=== PATIENT | female | born 1985 | race American Indian/Alaskan Native ===

== ENCOUNTER 2016-12-03 20:52 | Inpatient (IN) | payer OTHER ==
--- NOTE | 2016-12-03 21:21 | Emergency Department Report ---
ED General Adult HPI - General Chief complaint: Chest Pain Stated complaint: CHEST PAIN Time Seen by Provider: 12/03/16 21:19 Source: patient, RN notes reviewed Mode of arrival: Ambulatory Limitations: No Limitations - History of Present Illness Initial comments: This is a 31-year-old female. She is previously unknown to me. She has a past medical history of hypertension. She does not currently have a primary care doctor. The patient is brought to the hospital by EMS. The patient complains of chest pain. Chest pain is central. It is associated with shortness of breath, radiates down the left upper extremity. There is no nausea, vomiting. There is no diaphoresis. There is no leg pain. There is no leg swelling. No recent trips greater than 4 hours. No recent hospital admissions. Patient does not take control tablets. In the ER, the patient was found to be severely short of breath, with markedly work of breathing. Her EKG was abnormal with a left axis deviation, left anterior fascicular block, had an elevated d-dimer, and had a CT scan of the chest which was negative for pulmonary embolus. The patient was given a trial of ambulation, she became markedly short of breath. Given her abnormal EKG, presence of hypertension, clinical symptoms, the patient will be admitted to the hospital to rule out cardiomyopathy, and acute coronary syndrome. The case was discussed with the Hospital physician, Dr. Pugh, who accepted the patient to her service. -: Gradual Location: chest, left, upper extremity Consistency: intermittent Improves with: rest Worsens with: movement Associated Symptoms: chest pain, shortness of breath, weakness - Related Data Home Medications Medication Instructions Recorded Confirmed Last Taken Hydrochlorothiazide 25 mg PO DAILY 09/06/13 12/03/16 02/05/14 08:00 Previous Rx's Medication Instructions Recorded Last Taken Type Cyclobenzaprine [Flexeril 10mg] 10 mg PO Q8H PRN #21 tablet 02/05/14 Unknown Rx Mark/Polymyx B/Dexameth Opth(Nf 2 drops OS QID #5 ml 02/05/14 Unknown Rx [Maxitrol] Acetamin/Codeine 120-12Mg/5 ml 5 ml PO TID PRN #10 dose 08/24/14 Unknown Rx [Tylenol/Codeine] Penicillin Vk [Veetids TAB] 500 mg PO BID #20 tablet 08/24/14 Unknown Rx Prednisone [Prednisone 5 mg (6-Day 5 mg PO .TAPER #1 tab.ds.pk 08/24/14 Unknown Rx Pack, 21 Tabs)] traMADol [Ultram 50 MG tab] 50 mg PO Q6HR PRN #21 tablet 03/27/15 Unknown Rx Acetaminophen/Codeine [Tylenol 1 tab PO TID PRN #15 tab 04/25/15 Unknown Rx /Codeine # 3 tab] Ibuprofen [Motrin 800 MG tab] 800 mg PO Q8H PRN #30 tablet 04/25/15 Unknown Rx Allergies Allergy/AdvReac Type Severity Reaction Status Date / Time pineapple Allergy Itching Verified 12/03/16 21:19 ED Review of Systems ROS: Stated complaint: CHEST PAIN Other details as noted in HPI Constitutional: denies: malaise Eyes: denies: vision change ENT: denies: epistaxis, congestion Respiratory: shortness of breath Cardiovascular: chest pain, dyspnea on exertion Gastrointestinal: nausea Genitourinary: denies: dysuria Musculoskeletal: back pain Skin: denies: lesions Neurological: weakness, paresthesias Psychiatric: anxiety ED Past Medical Hx - Past Medical History Hx Hypertension: Yes Additional medical history: Obesity. Chronic back pain - Surgical History Past Surgical History?: No - Social History Smoking Status: Current Every Day Smoker Substance Use Type: None - Medications Home Medications: Home Medications Medication Instructions Recorded Confirmed Last Taken Type Hydrochlorothiazide 25 mg PO DAILY 09/06/13 12/03/16 02/05/14 08:00 History Cyclobenzaprine [Flexeril 10mg] 10 mg PO Q8H PRN #21 tablet 02/05/14 12/03/16 Unknown Rx Mark/Polymyx B/Dexameth Opth(Nf 2 drops OS QID #5 ml 02/05/14 12/03/16 Unknown Rx [Maxitrol] Acetamin/Codeine 120-12Mg/5 ml 5 ml PO TID PRN #10 dose 08/24/14 12/03/16 Unknown Rx [Tylenol/Codeine] Penicillin Vk [Veetids TAB] 500 mg PO BID #20 tablet 08/24/14 12/03/16 Unknown Rx Prednisone [Prednisone 5 mg (6-Day 5 mg PO .TAPER #1 tab.ds.pk 08/24/14 Unknown Rx Pack, 21 Tabs)] traMADol [Ultram 50 MG tab] 50 mg PO Q6HR PRN #21 tablet 03/27/15 12/03/16 Unknown Rx Acetaminophen/Codeine [Tylenol 1 tab PO TID PRN #15 tab 04/25/15 12/03/16 Unknown Rx /Codeine # 3 tab] Ibuprofen [Motrin 800 MG tab] 800 mg PO Q8H PRN #30 tablet 04/25/15 12/03/16 Unknown Rx ED Physical Exam - General Limitations: No Limitations General appearance: alert, in distress, obese - Head Head exam: Present: atraumatic, normocephalic - Eye Eye exam: Present: normal appearance, EOMI. Absent: nystagmus - ENT ENT exam: Present: normal exam, normal orophraynx, mucous membranes moist, normal external ear exam - Neck Neck exam: Present: normal inspection, full ROM. Absent: tenderness, meningismus - Respiratory Respiratory exam: Present: normal lung sounds bilaterally. Absent: respiratory distress, wheezes, rales, rhonchi, stridor, chest wall tenderness, accessory muscle use, decreased breath sounds, prolonged expiratory - Cardiovascular Cardiovascular Exam: Present: regular rate, normal rhythm, normal heart sounds. Absent: bradycardia, tachycardia, irregular rhythm, systolic murmur, diastolic murmur, rubs, gallop - GI/Abdominal GI/Abdominal exam: Present: soft, normal bowel sounds. Absent: distended, tenderness, guarding, rebound, rigid, pulsatile mass - Extremities Exam Extremities exam: Present: normal inspection, full ROM, normal capillary refill. Absent: tenderness, pedal edema, joint swelling, calf tenderness - Back Exam Back exam: Present: normal inspection, full ROM. Absent: tenderness, CVA tenderness (R), CVA tenderness (L), muscle spasm, paraspinal tenderness, vertebral tenderness - Neurological Exam Neurological exam: Present: alert, oriented X3, normal gait, other (Extraocular movements intact. Tongue midline. No facial droop. Facial sensation intact to light touch in the V1, V2, V3 distribution bilaterally. 5 and 5 strength in 4 extremities.. Sensation is intact to light touch in 4 extremities.). Absent : motor sensory deficit - Psychiatric Psychiatric exam: Present: anxious - Skin Skin exam: Present: warm, dry, intact, normal color. Absent: rash ED Course Vital Signs 12/03/16 12/03/16 12/04/16 21:12 22:29 00:21 Temperature 98 F Pulse Rate 74 74 71 Respiratory 16 16 Rate Blood Pressure 155/96 Blood Pressure 139/89 139/81 [Left] O2 Sat by Pulse 95 95 100 Oximetry 12/04/16 01:02 Temperature Pulse Rate 84 Respiratory 16 Rate Blood Pressure Blood Pressure 147/89 [Left] O2 Sat by Pulse 95 Oximetry - Reevaluation(s) Reevaluation #1: 12/04/16 01:06 differential diagnosis: Acute coronary syndrome, pneumonia, pulmonary embolus, anxiety, cardiomyopathy Assessment and plan: 31-year-old female with concerning chest pain, abnormal EKG , appears quite distressed, with difficult work of breathing, to be admitted for further evaluation. ED Medical Decision Making - Lab Data Result diagrams: 12/03/16 21:19 12/03/16 21:19 Vital Signs 12/03/16 12/03/16 12/04/16 21:12 22:29 00:21 Temperature 98 F Pulse Rate 74 74 71 Respiratory 16 16 Rate Blood Pressure 155/96 Blood Pressure 139/89 139/81 [Left] O2 Sat by Pulse 95 95 100 Oximetry 12/04/16 01:02 Temperature Pulse Rate 84 Respiratory 16 Rate Blood Pressure Blood Pressure 147/89 [Left] O2 Sat by Pulse 95 Oximetry Lab Results 12/03/16 12/03/16 12/03/16 Range/Units 21:19 21:19 21:28 WBC 12.6 H (4.5-11.0) K/mm3 RBC 3.49 L (3.65-5.03) M/mm3 Hgb 10.7 (10.1-14.3) gm/dl Hct 31.5 (30.3-42.9) % MCV 90 (79-97) fl MCH 31 (28-32) pg MCHC 34 (30-34) % RDW 14.3 (13.2-15.2) % Plt Count 273 (140-440) K/mm3 Lymph % (Auto) 28.8 (13.4-35.0) % [place] % (Auto) 6.7 (0.0-7.3) % Eos % (Auto) 0.6 (0.0-4.3) % Baso % (Auto) 0.2 (0.0-1.8) % Lymph # 3.6 (1.2-5.4) K/mm3 [place] # 0.8 (0.0-0.8) K/mm3 Eos # 0.1 (0.0-0.4) K/mm3 Baso # 0.0 (0.0-0.1) K/mm3 Seg Neutrophils % 63.7 (40.0-70.0) % Seg Neutrophils # 8.0 H (1.8-7.7) K/mm3 PT 15.6 H (12.2-14.9) Sec. INR 1.25 H (0.87-1.13) D-Dimer (0-234) ng/mlDDU Sodium 140 (137-145) mmol/L Potassium 3.7 (3.6-5.0) mmol/L Chloride 101.8 (98-107) mmol/L Carbon Dioxide 25 (22-30) mmol/L Anion Gap 17 mmol/L BUN 7 (7-17) mg/dL Creatinine 0.8 (0.7-1.2) mg/dL Estimated GFR > 60 ml/min BUN/Creatinine Ratio 8.75 % Glucose 93 (65-100) mg/dL Calcium 8.7 (8.4-10.2) mg/dL Troponin T < 0.010 (0.00-0.029) ng/mL HCG, Quant (0-4) mIU/mL 12/03/16 12/03/16 12/04/16 Range/Units 21:28 21:28 00:13 WBC (4.5-11.0) K/mm3 RBC (3.65-5.03) M/mm3 Hgb (10.1-14.3) gm/dl Hct (30.3-42.9) % MCV (79-97) fl MCH (28-32) pg MCHC (30-34) % RDW (13.2-15.2) % Plt Count (140-440) K/mm3 Lymph % (Auto) (13.4-35.0) % [place] % (Auto) (0.0-7.3) % Eos % (Auto) (0.0-4.3) % Baso % (Auto) (0.0-1.8) % Lymph # (1.2-5.4) K/mm3 [place] # (0.0-0.8) K/mm3 Eos # (0.0-0.4) K/mm3 Baso # (0.0-0.1) K/mm3 Seg Neutrophils % (40.0-70.0) % Seg Neutrophils # (1.8-7.7) K/mm3 PT (12.2-14.9) Sec. INR (0.87-1.13) D-Dimer 251.11 H (0-234) ng/mlDDU Sodium (137-145) mmol/L Potassium (3.6-5.0) mmol/L Chloride (98-107) mmol/L Carbon Dioxide (22-30) mmol/L Anion Gap mmol/L BUN (7-17) mg/dL Creatinine (0.7-1.2) mg/dL Estimated GFR ml/min BUN/Creatinine Ratio % Glucose (65-100) mg/dL Calcium (8.4-10.2) mg/dL Troponin T < 0.010 (0.00-0.029) ng/mL HCG, Quant < 2 (0-4) mIU/mL - EKG Data 12/04/16 01:07 EKG #1 demonstrates normal sinus, 72 bpm, left ventricular hypertrophy, left axis deviation, left anterior fascicular block, not morphologically consistent with STEMI, there appears to be no change when compared to prior EKG from 2012. Repeat EKG demonstrates normal sinus, 77 bpm, left anterior fascicular block, left ventricular hypertrophy, not consistent with STEMI, unchanged from prior. - Radiology Data Radiology results: report reviewed, image reviewed CT scan of the chest is negative for acute disease. X-ray the chest is negative for acute disease. Critical care attestation.: If time is entered above; I have spent that time in minutes in the direct care of this critically ill patient, excluding procedure time. ED Disposition Clinical Impression: Abnormal EKG, Dyspnea, Chest pain Disposition: OP ADMITTED IP TO THIS HOSP Is pt being admited?: Yes Does the pt Need Aspirin: Yes Condition: Stable Instructions: Chest Pain (ED) Referrals: PRIMARY CARE, [Primary Care Provider] - 3-5 Days
[2016-12-03 21:36] LABS: Basophils % (Auto) 0.2 % (0.0-1.8); Eosinophils % (Auto) 0.6 % (0.0-4.3); Hematocrit 31.5 % (30.3-42.9); Hemoglobin 10.7 gm/dl (10.1-14.3); Mean Corpuscular HGB Conc 34 % (30-34); Mean Corpuscular Hemoglobin 31 pg (28-32); Mean Corpuscular Volume 90 fl (79-97); Platelet Count 273 K/mm3 (140-440); Red Blood Count 3.49 M/mm3 (3.65-5.03); Red Cell Distribution Width 14.3 % (13.2-15.2); White Blood Count 12.6 K/mm3 (4.5-11.0)
[2016-12-03 21:48] LABS: INR 1.25 (0.87-1.13)
[2016-12-03 22:11] LABS: BUN/Creatinine Ratio 8.75; Blood Urea Nitrogen 7 mg/dL (7-17); Calcium 8.7 mg/dL (8.4-10.2); Carbon Dioxide 25 mmol/L (22-30); Glucose 93 mg/dL (65-100)
[2016-12-03 22:12] LABS: Anion Gap 17 mmol/L; Chloride 101.8 mmol/L (98-107); Potassium 3.7 mmol/L (3.6-5.0); Sodium 140 mmol/L (137-145)
--- NOTE | 2016-12-03 22:38 | XRay Report ---
FINAL REPORT EXAM: XR CHEST ROUTINE 2V HISTORY: cp TECHNIQUE: Two view chest PA and lateral PRIORS: None. FINDINGS: Cardiac and mediastinal contours are unremarkable. No focal pulmonary infiltrate is identified. No pleural fluid collection seen. Pulmonary vasculature is unremarkable. IMPRESSION: Negative two-view chest
[2016-12-03] MEDS ORDERED: NACL 0.9% 1000 ML 1,000 ML IV ONE (22:53)
[2016-12-03] MEDS ORDERED: TORADOL IV ONE (22:53)
[2016-12-03] MEDS ORDERED: NACL ONE (23:14)
--- NOTE | 2016-12-04 00:04 | Cat Scan Report ---
FINAL REPORT PROCEDURE: CT ANGIO CHEST TECHNIQUE: Computerized tomographic angiography of the chest was performed during the IV injection of iodinated nonionic contrast including image processing. The image data was postprocessed using 2-dimensional multiplanar reformatted (MPR) and 3-dimensional (MIP and/or volume rendered) techniques. HISTORY: cp COMPARISON: Chest two views 12/03/2016 FINDINGS: Heart and pericardium: Normal. Thoracic aorta: Normal. Pulmonary vasculature: Normal. Lymph nodes: No enlarged thoracic lymph nodes. Lungs: Mild bibasilar subsegmental atelectasis. Pleural space: No effusion or pneumothorax. Musculoskeletal structures: No significant abnormality. Upper abdominal structures: No significant abnormality. IMPRESSION: Unremarkable examination
[2016-12-04] MEDS ORDERED: DULCOLAX PR PRN (01:23)
[2016-12-04] MEDS ORDERED: ZOFRAN IV PRN (01:23)
[2016-12-04] MEDS ORDERED: MILK OF MAGNESIA PO PRN (01:23)
[2016-12-04] MEDS ORDERED: PROVENTIL IH PRN (01:23)
[2016-12-04] MEDS ORDERED: MORPHINE IV PRN (01:23)
[2016-12-04] MEDS ORDERED: SODIUM CHLORIDE FLUSH SYRINGE 10 ML IV PRN (01:23)
[2016-12-04] MEDS ORDERED: TYLENOL PO PRN (01:23)
--- NOTE | 2016-12-04 01:27 | History and Physical Report ---
History of Present Illness Date of examination: 12/04/16 History of present illness: 31-year-old woman with history of hypertension comes emergency room with complaints of feeling short of breath. Symptoms developed while she was exercising, she due to a half laps around the field. She also complaining of chest pain in the epigastric area which she describes a sharp pain, constant, intensity 4/10, radiating to the left shoulder and down the left arm, she cannot identify exacerbating or relieving factors. She denies nausea vomiting, diaphoresis or palpitation. She did not take antihypertensive yesterday Patient denies cough, abdominal pain, hematochezia, dysuria, frequency, focal weakness, dysarthria, fever chills, polydipsia polyuria, hot or cold intolerance , easy bruisability, or rash or bleeding from mucosal membrane, rhinorrhea, epistaxis, earache, tinnitus, blurry vision, eye discharge, anxiety, depression. Other review of systems negative PAST SURGICAL HISTORY: None SOCIAL HISTORY: Smoked 3 cigars a day, social alcohol use, no drugs FAMILY HISTORY: Hypertension Medications and Allergies Allergies Allergy/AdvReac Type Severity Reaction Status Date / Time pineapple Allergy Itching Verified 12/03/16 21:19 Home Medications Medication Instructions Recorded Confirmed Last Taken Type Hydrochlorothiazide 25 mg PO DAILY 09/06/13 12/03/16 02/05/14 08:00 History Cyclobenzaprine [Flexeril 10mg] 10 mg PO Q8H PRN #21 tablet 02/05/14 12/03/16 Unknown Rx Mark/Polymyx B/Dexameth Opth(Nf 2 drops OS QID #5 ml 02/05/14 12/03/16 Unknown Rx [Maxitrol] Acetamin/Codeine 120-12Mg/5 ml 5 ml PO TID PRN #10 dose 08/24/14 12/03/16 Unknown Rx [Tylenol/Codeine] Penicillin Vk [Veetids TAB] 500 mg PO BID #20 tablet 08/24/14 12/03/16 Unknown Rx Prednisone [Prednisone 5 mg (6-Day 5 mg PO .TAPER #1 tab.ds.pk 08/24/14 Unknown Rx Pack, 21 Tabs)] traMADol [Ultram 50 MG tab] 50 mg PO Q6HR PRN #21 tablet 03/27/15 12/03/16 Unknown Rx Acetaminophen/Codeine [Tylenol 1 tab PO TID PRN #15 tab 04/25/15 12/03/16 Unknown Rx /Codeine # 3 tab] Ibuprofen [Motrin 800 MG tab] 800 mg PO Q8H PRN #30 tablet 04/25/15 12/03/16 Unknown Rx Exam - Physical Exam Narrative exam: Gen. appearance: Patient lying in bed, no apparent distress HEENT: Normocephalic, atraumatic, pupils equally round and reactive to light, extraocular movement intact, and no sclericterus,. No JVD or thyromegaly or nodule,neck supple, no carotid bruit ,mucous membranes moist, no exudate or erythema Heart: S1, S2, regular rate and rhythm Lungs: Clear to auscultation bilaterally, breathing comfortable Abdomen: Positive bowel sounds, nontender, nondistended, no organomegaly Extremity: No edema, cyanosis, clubbing Skin: No rash, nodules, warm, dry Neuro: Oriented 3, cranial nerves II-12 intact, speech is fluent, motor and sensory intact - Constitutional Vitals: Temp Pulse Resp BP Pulse Ox 98 F 84 16 147/89 95 12/03/16 21:12 12/04/16 01:02 12/04/16 01:02 12/04/16 01:02 12/04/16 01:02 Results - Labs CBC & Chem 7: 12/03/16 21:19 12/03/16 21:19 Labs: Abnormal lab results 12/03/16 12/03/16 12/03/16 Range/Units 21:19 21:28 21:28 WBC 12.6 H (4.5-11.0) K/mm3 RBC 3.49 L (3.65-5.03) M/mm3 Seg Neutrophils # 8.0 H (1.8-7.7) K/mm3 PT 15.6 H (12.2-14.9) Sec. INR 1.25 H (0.87-1.13) D-Dimer 251.11 H (0-234) ng/mlDDU - Imaging and Cardiology EKG: image reviewed Chest x-ray: image reviewed CT scan - chest: report reviewed Assessment and Plan Hypertensive urgency Chest pain, rule out ACS Obesity Admits medicine Check cardiac enzymes, lipid profile, obtain stress test Restart outpatient medicines, start IV hydralazine, morphine, DVT prophylaxis
[2016-12-04 06:49] LABS: Creatine Kinase MB 1.5 ng/mL (0.0-4.0)
[2016-12-04] MEDS ORDERED: LEXISCAN IV ONE ×2 (08:46→09:43)
--- NOTE | 2016-12-04 09:38 | Discharge Summary ---
Providers - Providers Date of Admission: 12/04/16 01:23 Date of discharge: 12/04/16 Attending physician: FRANCK YARBROUGH Primary care physician: CHERRIE CASTILLO MD Hospitalization Condition: Stable Hospital course: 31-year-old woman with history of hypertension comes emergency room with complaints of feeling short of breath. Symptoms developed while she was exercising. She also complaining of chest pain in the epigastric area which she describes a sharp pain, constant, intensity 4/10, radiating to the left shoulder and down the left arm. She did not take antihypertensive yesterday. She was admitted and Cardiac Enzyme followed. CXR, CTA chest was unremarkable. Thallium stress test was unremarkable too. She was discharged home in stable condition. Discharge Diagnosis: Hypertensive urgency, resolved Chest pain, ruled out ACS, likely GERD Obesity, due to access calorie Disposition: DISCHARGED TO HOME OR SELFCARE Time spent for discharge: 32 minutes Core Measure Documentation - Palliative Care Palliative Care/ Comfort Measures: Not Applicable - Core Measures Any of the following diagnoses?: none Exam - Constitutional Vitals: Temp Pulse Resp BP Pulse Ox 97.6 F 77 20 133/78 100 12/04/16 04:25 12/04/16 04:25 12/04/16 04:25 12/04/16 04:25 12/04/16 04:25 General appearance: Present: no acute distress, obese - EENT Eyes: Present: PERRL ENT: hearing intact, clear oral mucosa - Neck Neck: Present: supple, normal ROM - Respiratory Respiratory effort: normal Respiratory: bilateral: CTA - Cardiovascular Heart Sounds: Present: S1 & S2. Absent: rub, click - Extremities Extremities: pulses symmetrical, No edema Peripheral Pulses: within normal limits - Abdominal General gastrointestinal: Present: soft, non-tender, non-distended, normal bowel sounds Female genitourinary: Present: deferred - Integumentary Integumentary: Present: clear, warm, dry - Musculoskeletal Musculoskeletal: gait normal, strength equal bilaterally - Psychiatric Psychiatric: appropriate mood/affect, intact judgment & insight - Neurologic Neurologic: CNII-XII intact, moves all extremities Plan Activity: advance as tolerated Weight Bearing Status: Weight Bear as Tolerated Diet: low fat, low salt Follow up with: PRIMARY CARE, [Primary Care Provider] - 3-5 Days
[2016-12-04] MEDS ORDERED: HCTZ PO SCH (10:00)
[2016-12-04] MEDS ORDERED: LOVENOX SUB-Q SCH (10:00)
[2016-12-04 11:16] LABS: Creatine Kinase MB 1.4 ng/mL (0.0-4.0)
[2016-12-04 14:33] VITALS: BP 130/75
--- NOTE | 2016-12-05 11:13 | Treadmill Report ---
THALLIUM STRESS TEST LEFT VENTRICLE: Left ventricular chamber size is within normal. Perfusion study demonstrates homogeneous uptake of the tracer in all segments, no significant perfusion defects identified. Gated analysis is suboptimal. CONCLUSION: Normal myocardial perfusion study. If indicated, echocardiography should be considered for optimal left ventricular function assessment. [facility]# [id number] CA/NTS
== END 2016-12-04 15:39 | disposition home or self-care (01) | DRG 392 ==
LOC: EEVIPCON 20:52 → ED 20:52 → 4A 12-04 01:23
PROVIDERS: ADMIT Internal Medicine; ATTEND Internal Medicine
DX: K21.9 Gastro-esophageal reflux disease without esophagitis (principal); Z68.41 Body mass index [BMI] 40.0-44.9, adult; I10 Essential (primary) hypertension; I16.0 Hypertensive urgency; E66.09 Other obesity due to excess calories; F41.9 Anxiety disorder, unspecified; F17.200 Nicotine dependence, unspecified, uncomplicated; G89.29 Other chronic pain; M54.9 Dorsalgia, unspecified; Z91.018 Allergy to other foods; Z82.49 Family history of ischemic heart disease and other diseases of the circulatory system
CPT/HCPCS: 36415; 71020; 71275; 78452; 80048; 80061; 82550; 82553; 84484; 84702; 85025; 85379; 85610; 93005; 93010; 93017; 94760; 96361; 96374; A9502; J1650; J1885; J2270; J2785; J7030; Q9967